=== PATIENT | male | born 1990 | race Caucasian/White ===

== ENCOUNTER 2024-06-21 23:18 | Emergency (ER) | payer OTHER ==
[2024-06-21 23:35] VITALS: BP 133/89; PULSE 82; RESP 18; TEMP 98.6; BMI 28.3
[2024-06-22] MEDS ORDERED: IBUPROFEN 600 MG TABLET (FP) PO ONE ×2 (00:37→00:38)
[2024-06-22] MEDS ORDERED: DIPHTH,PERTUSS(ACELL),TET 0.5 ML DISP.SYRIN IM ONE (00:37)
[2024-06-22] MEDS ORDERED: CEPHALEXIN MONOHYDRATE 500 MG CAPSULE (UD) ONE (00:37)
[2024-06-22] MEDS: IBUPROFEN 600 MG TABLET (FP) PO ONE (00:40)
[2024-06-22] MEDS: CEPHALEXIN MONOHYDRATE 500 MG CAPSULE (UD) PO ONE (00:40)
[2024-06-22] MEDS: DIPHTH,PERTUSS(ACELL),TET 0.5 ML DISP.SYRIN IM ONE (00:55)
== END 2024-06-22 01:42 | disposition home or self-care (01) ==
LOC: JER 23:18
PROC: 3E0234Z Introduction of Serum, Toxoid and Vaccine into Muscle, Percutaneous Approach (ICD-10-PCS; principal; 2024-06-22)
DX: M25.531 Pain in right wrist (principal); M25.532 Pain in left wrist; Z23 Encounter for immunization
CPT/HCPCS: 73110-TC-LT-FY; 73110-TC-RT-FY; 73130-TC-LT-FY; 73130-TC-RT-FY; 90715; 99283-25